=== PATIENT | male | born 1990 ===

== ENCOUNTER 2023-04-09 12:48 | Emergency (ER) | payer MEDICAID ==
[~2023-04-09] VITALS: Ht 165.1 cm; Wt 90.9 kg
[2023-04-09 12:56] VITALS: BP 112/81; PULSE 81; RESP 18; TEMP 98.5
== END 2023-04-09 15:09 | disposition home or self-care (01) ==
LOC: EMS 12:50
DX: M25.572 Pain in left ankle and joints of left foot (principal); Z98.890 Other specified postprocedural states; Z91.040 Latex allergy status
CPT/HCPCS: 99283